=== PATIENT | male | born 1985 | race Hispanic/Latino ===

== ENCOUNTER → 2018-05-11 | Outpatient (CLI) | payer BC ==
--- NOTE | 2018-05-11 11:19 | Diagnostic Imaging Report ---
Exam: Lumbar spine 4 views History: Low back pain Comparison: None. Findings: 5 nonrib-bearing lumbar-type vertebral bodies. No acute, displaced fracture or subluxation. No pars interarticularis defects are identified on the oblique radiographs. Intervertebral disc spaces and facet joints are well-maintained. Sacroiliac joints are intact. Impression: Unremarkable lumbar spine radiographs. Signed by: Dr. Andre Amor M.D. on 05/11/2018 11:16 AM
== END ==
LOC: RAD 10:12
PROVIDERS: ATTEND Family Medicine
DX: M54.5 Low back pain (principal)
CPT/HCPCS: 72110